=== PATIENT | male | born 1940 | race Caucasian/White ===

== ENCOUNTER → 2016-05-09 | Day surgery (SDC) | payer OTHER ==
[~2016-05-09] VITALS: Ht 172.7 cm; Wt 81.4 kg
[~2016-05-09] MED LIST: AMARYL2 MG PO; AMARYL4 MG PO; ANTIVERT25 MG PO; BACTRIM,SEPT1 TABLET PO; CARAFATE1 GM PO; CARAFATE100 MG/ML PO; GLIMEPIRIDE4 MG PO; GLIPIZIDE-METF1 EAC2 PO; GLUCOPHAGE1000 MG PO; IMODIUM MS REL1 EACH PO; JENTADUETO 2.51 EAC1 PO; JENTADUETO 2.51 EAC2 PO; LAMICTAL XR100 MG PO; LANSOPRAZOLE30 MG PO; LEVOXYL50 MCG PO; LINZESS290 MCG PO; LISINOPRIL10 MG PO; LORTAB 5-325 M1 EACH PO; MEGACE20 MG PO; MEGACE40 MG PO; MEGESTROL ACETA40 MG PO; MOBIC7.5 MG PO; OMEPRAZOLE20 M2 PO; OXYCODONE-APAP1 EAC6 PO; PANTOPRAZOLE SO40 MG PO; PEPCID20 MG PO; PERCOCET 5/31 TABLET PO; PERCOCET 7.51 TABLET PO; PREDNISONE20 MG PO; PRILOSEC20 MG PO; PRINIVIL10 MG PO; PROTONIX40 MG PO; SUCRALFATE1 GM/10 ML PO; SYNTHROID50 MCG PO; TRADJENTA5 MG PO
[2016-05-09 14:09] LABS: HEMATOCRIT 28.8 % (38.0-50.0); MCHC 30.9 G/DL (30.0-36.0); MCV 68.1 FL (86-99); MEAN PLAT.VOLUME 10.4 uM^3 (9.0-12.4); PLATELET COUNT 353 K/uL (156-360); RBC DIS.WIDTH-CV 18.6 % (11.8-14.6); RBC DIS.WIDTH-SD 45.2 % (39-53); RED BLOOD COUNT 4.23 M/uL (4.00-5.50); WHITE BLOOD COUNT 9.7 K/uL (4.1-10.2)
[2016-05-09 14:21] LABS: CHLORIDE 107 mEq/L (99-109); POTASSIUM 4.5 mEq/L (3.7-5.4); SODIUM 140 mEq/L (136-147)
[2016-05-09 14:23] LABS: GLUCOSE 145 mg/dL (70-99)
[2016-05-09 14:25] LABS: ANION GAP 11 MEQ/L (2-14)
[2016-05-09 14:27] LABS: GFR ESTIMATE (CALCULATED) 48 mL/min/
[2016-05-09 14:28] LABS: UREA NITROGEN (BUN) 28 mg/dL (9-23)
[2016-05-09 15:11] VITALS: BP 118/60
[2016-05-09 17:15] LABS: POINT-OF-CARE METER ID UU13113675
== END | disposition home or self-care (01) ==
LOC: EME → EDBD 12:58 → EME 12:58 → SDC 15:45
PROVIDERS: Emergency Medicine; Specialist
PROC: 0DC38ZZ Extirpation of Matter from Lower Esophagus, Via Natural or Artificial Opening Endoscopic (ICD-10-PCS; principal; 2016-05-09)
DX: T18.128A Food in esophagus causing other injury, initial encounter (principal); Y92.9 Unspecified place or not applicable; K22.2 Esophageal obstruction; K20.9 Esophagitis, unspecified; I10 Essential (primary) hypertension; E03.9 Hypothyroidism, unspecified; E11.9 Type 2 diabetes mellitus without complications; G40.909 Epilepsy, unspecified, not intractable, without status epilepticus; Z95.1 Presence of aortocoronary bypass graft
CPT/HCPCS: 80048; 82948; 85027; 93005; 99281; 99285; J0330; J3010; J7030

== ENCOUNTER 2016-05-23 16:05 | Emergency (ER) | payer OTHER ==
[~2016-05-23] VITALS: Ht 172.7 cm; Wt 84.2 kg
[2016-05-23 17:50] LABS: HEMATOCRIT 30.8 % (38.0-50.0); MCHC 30.2 G/DL (30.0-36.0); MCV 69.7 FL (86-99); RBC DIS.WIDTH-CV 18.3 % (11.8-14.6); RBC DIS.WIDTH-SD 45.3 % (39-53); RED BLOOD COUNT 4.42 M/uL (4.00-5.50); WHITE BLOOD COUNT 11.6 K/uL (4.1-10.2)
[2016-05-23 18:12] LABS: TROP-I INTERPRETATION NEGATIVE; TROPONIN-I 0.01 ng/mL (0.0-0.30)
[2016-05-23 18:19] LABS: CHLORIDE 107 mEq/L (99-109); POTASSIUM 5.1 mEq/L (3.7-5.4); SODIUM 140 mEq/L (136-147)
[2016-05-23 18:21] LABS: GLUCOSE 90 mg/dL (70-99)
[2016-05-23 18:22] LABS: ANION GAP 11 MEQ/L (2-14)
[2016-05-23 18:25] LABS: GFR ESTIMATE (CALCULATED) 45 mL/min/
[2016-05-23 18:26] LABS: UREA NITROGEN (BUN) 25 mg/dL (9-23)
[2016-05-23 18:37] LABS: MEAN PLAT.VOLUME 11.1 uM^3 (9.0-12.4)
[2016-05-23 18:38] LABS: PLATELET COUNT 217 K/uL (156-360)
[2016-05-23] MEDS ORDERED: ZANTAC150 MG PO (19:27)
[2016-05-23] MEDS ORDERED: MAALOX ADVANCE355 ML PO (19:27)
[2016-05-23 19:57] VITALS: BP 102/60
== END 2016-05-23 20:19 | disposition home or self-care (01) ==
LOC: EXP 16:05 → EME 16:05 → EXP 20:19
PROVIDERS: Physician Assistant
DX: K21.9 Gastro-esophageal reflux disease without esophagitis (principal)
CPT/HCPCS: 80048; 84484; 85027; 93005; 99281; 99284

== ENCOUNTER 2016-05-31 08:48 | Emergency (ER) | payer OTHER ==
[~2016-05-31] VITALS: Ht 172.7 cm; Wt 85.9 kg
[~2016-05-31 08:48] MED LIST changes: +MAALOX ADVANCE355 ML PO; +ZANTAC150 MG PO
[2016-05-31 09:38] LABS: HEMATOCRIT 30.3 % (38.0-50.0); MCH 21.3 PG (29.0-34.0); MCV 70.8 FL (86-99); RBC DIS.WIDTH-CV 17.9 % (11.8-14.6); RBC DIS.WIDTH-SD 45.2 % (39-53); RED BLOOD COUNT 4.28 M/uL (4.00-5.50); WHITE BLOOD COUNT 11.8 K/uL (4.1-10.2)
[2016-05-31 09:40] LABS: CHLORIDE 110 mEq/L (99-109); POTASSIUM 4.5 mEq/L (3.7-5.4); SODIUM 140 mEq/L (136-147)
[2016-05-31 09:43] LABS: GLUCOSE 69 mg/dL (70-99)
[2016-05-31 09:44] LABS: ANION GAP 11 MEQ/L (2-14)
[2016-05-31 09:45] LABS: TOTAL BILIRUBIN 0.2 mg/dL (0.0-1.0)
[2016-05-31 09:46] LABS: ALKALINE PHOSPHATASE 90 IU/L (3-129)
[2016-05-31 09:47] LABS: GFR ESTIMATE (CALCULATED) 57 mL/min/
[2016-05-31 09:48] LABS: DIRECT BILIRUBIN 0.1 mg/dL (0.0-0.3); UREA NITROGEN (BUN) 29 mg/dL (9-23)
[2016-05-31 09:50] LABS: LIPASE 69 U/L (1.0-51.0)
[2016-05-31 09:51] LABS: TROP-I INTERPRETATION NEGATIVE; TROPONIN-I 0.01 ng/mL (0.0-0.30)
[2016-05-31 11:02] LABS: MEAN PLAT.VOLUME 10.6 uM^3 (9.0-12.4)
[2016-05-31 11:21] LABS: PLATELET COUNT 293 K/uL (156-360)
[2016-05-31] MEDS ORDERED: ZANTAC150 MG PO (11:33)
[2016-05-31 12:15] VITALS: BP 134/51
[2016-05-31 12:23] LABS: POINT-OF-CARE METER ID UU13113702; POINT-OF-CARE USER ID AHSDISBJH
== END 2016-05-31 12:18 | disposition home or self-care (01) ==
LOC: EME → EDBD 08:48 → EME 12:18
PROVIDERS: Emergency Medicine
DX: K21.0 Gastro-esophageal reflux disease with esophagitis (principal); D72.829 Elevated white blood cell count, unspecified; D64.9 Anemia, unspecified; E87.8 Other disorders of electrolyte and fluid balance, not elsewhere classified; E11.9 Type 2 diabetes mellitus without complications; Z95.1 Presence of aortocoronary bypass graft
CPT/HCPCS: 71020; 80048; 80076; 82948; 83690; 84484; 85027; 99281; 99285

== ENCOUNTER → 2016-07-08 | Outpatient (CLI) | payer OTHER ==
[~2016-07-08] VITALS: Ht 172.7 cm; Wt 85.7 kg
[~2016-07-08] MED LIST changes: +KENALOG,ARISTOC15 G2 TP
== END | disposition home or self-care (01) ==
LOC: AMB 14:30
DX: R07.0 Pain in throat (principal); K44.9 Diaphragmatic hernia without obstruction or gangrene; Z53.09 Procedure and treatment not carried out because of other contraindication

== ENCOUNTER → 2016-07-22 | Outpatient (CLI) | payer OTHER ==
[~2016-07-22] VITALS: Ht 172.7 cm; Wt 83.9 kg
[2016-07-22 14:45] LABS: POINT-OF-CARE METER ID UU13113694
[2016-07-22 16:05] LABS: POINT-OF-CARE METER ID UU13113819
== END | disposition home or self-care (01) ==
LOC: AMB 14:00
PROVIDERS: Internal Medicine Gastroenterology
DX: K22.2 Esophageal obstruction (principal); K26.9 Duodenal ulcer, unspecified as acute or chronic, without hemorrhage or perforation; K29.50 Unspecified chronic gastritis without bleeding; I25.10 Atherosclerotic heart disease of native coronary artery without angina pectoris; E11.9 Type 2 diabetes mellitus without complications; I10 Essential (primary) hypertension; R94.31 Abnormal electrocardiogram [ECG] [EKG]; Z85.46 Personal history of malignant neoplasm of prostate; Z95.1 Presence of aortocoronary bypass graft; Z87.891 Personal history of nicotine dependence
CPT/HCPCS: 82948; 88305; 88342 TC

== ENCOUNTER 2016-09-16 14:10 | Emergency (ER) | payer OTHER ==
[~2016-09-16] VITALS: Ht 172.7 cm; Wt 85.2 kg
[2016-09-16 16:56] VITALS: BP 136/55
== END 2016-09-16 16:58 | disposition home or self-care (01) ==
LOC: EME 14:10
DX: T18.108A Unspecified foreign body in esophagus causing other injury, initial encounter (principal); E11.9 Type 2 diabetes mellitus without complications; Z79.84 Long term (current) use of oral hypoglycemic drugs; Z95.1 Presence of aortocoronary bypass graft; Z87.891 Personal history of nicotine dependence
CPT/HCPCS: 99281; 99284

== ENCOUNTER 2016-11-19 09:00 | Emergency (ER) | payer OTHER ==
[~2016-11-19] VITALS: Ht 172.7 cm; Wt 86.3 kg
[2016-11-19] MEDS ORDERED: ULTRAM50 MG PO (10:07)
[2016-11-19 10:31] VITALS: BP 186/70
== END 2016-11-19 10:48 | disposition home or self-care (01) ==
LOC: EME 09:00
DX: S39.012A Strain of muscle, fascia and tendon of lower back, initial encounter (principal); E11.9 Type 2 diabetes mellitus without complications; Z79.84 Long term (current) use of oral hypoglycemic drugs; Z87.891 Personal history of nicotine dependence
CPT/HCPCS: 99281; 99284

== ENCOUNTER 2016-12-29 18:41 | Day surgery (SDC) | payer OTHER ==
[~2016-12-29] VITALS: Ht 172.7 cm; Wt 79.6 kg
[~2016-12-29 18:41] MED LIST changes: +ULTRAM50 MG PO
[2016-12-29 19:57] LABS: HEMATOCRIT 32.2 % (38.0-50.0); MCH 24.2 PG (29.0-34.0); MCHC 31.7 G/DL (30.0-36.0); MCV 76.5 FL (86-99); MEAN PLAT.VOLUME 11.4 uM^3 (9.0-12.4); PLATELET COUNT 247 K/uL (156-360); RBC DIS.WIDTH-CV 15.4 % (11.8-14.6); RBC DIS.WIDTH-SD 42.1 % (39-53); RED BLOOD COUNT 4.21 M/uL (4.00-5.50); WHITE BLOOD COUNT 10.1 K/uL (4.1-10.2)
[2016-12-29 20:10] LABS: CHLORIDE 106 mEq/L (99-109); POTASSIUM 4.5 mEq/L (3.7-5.4); SODIUM 139 mEq/L (136-147)
[2016-12-29 20:12] LABS: GLUCOSE 163 mg/dL (70-99)
[2016-12-29 20:13] LABS: ANION GAP 14 MEQ/L (2-14)
[2016-12-29 20:14] LABS: TOTAL BILIRUBIN 0.3 mg/dL (0.0-1.0)
[2016-12-29 20:15] LABS: ALKALINE PHOSPHATASE 92 IU/L (3-129)
[2016-12-29 20:16] LABS: GFR ESTIMATE (CALCULATED) 39 mL/min/
[2016-12-29 20:17] LABS: UREA NITROGEN (BUN) 26 mg/dL (9-23)
[2016-12-29 21:12] LABS: ADD MIUA? NO; BILIRUBIN NEGATIVE; BLOOD NEGATIVE; COLOR YELLOW ((YELLOW)); GLUCOSE (STRIP) NEGATIVE; KETONES NEGATIVE; LEUKOCYTES NEGATIVE; NITRITE NEGATIVE; PROTEIN (STRIP) NEGATIVE; SPECIFIC GRAVITY 1.018 (1.000-1.030); UCUL ADDED? NO; UROBILINOGEN 0.2 MG/DL (0.2-1.0)
[2016-12-29] MEDS ORDERED: TRAMADOL HCL50 MG PO (21:35)
[2016-12-30 00:38] VITALS: BP 168/70
[2016-12-30 03:47] VITALS: BP 153/67
[2016-12-30 06:04] LABS: POINT-OF-CARE METER ID UU14208750
[2016-12-30 07:03] LABS: HEMATOCRIT 29.7 % (38.0-50.0); MCH 24.4 PG (29.0-34.0); MCHC 31.6 G/DL (30.0-36.0); MCV 77.1 FL (86-99); MEAN PLAT.VOLUME 10.9 uM^3 (9.0-12.4); PLATELET COUNT 220 K/uL (156-360); RBC DIS.WIDTH-CV 15.8 % (11.8-14.6); RBC DIS.WIDTH-SD 43.7 % (39-53); RED BLOOD COUNT 3.85 M/uL (4.00-5.50); WHITE BLOOD COUNT 10.1 K/uL (4.1-10.2)
[2016-12-30 07:12] VITALS: BP 118/54
[2016-12-30 07:34] LABS: ANION GAP 11 MEQ/L (2-14); CHLORIDE 109 MEQ/L (99-109); GFR ESTIMATE (CALCULATED) 57 mL/min/; SAMPLE HEMOLYSIS CHECK 0; SAMPLE ICTERIC CHECK 0; SAMPLE LIPEMIA CHECK 0; SODIUM 141 MEQ/L (136-147); UREA NITROGEN (BUN) 21 mg/dL (9-23)
[2016-12-30 07:38] LABS: GLUCOSE 108 mg/dL (70-99)
[2016-12-30] MEDS ORDERED: PROMETHAZINE HC25 M1 PO (08:28)
[2016-12-30] MEDS ORDERED: COLACE100 MG PO (08:28)
== END 2016-12-30 10:51 | disposition home or self-care (01) ==
LOC: EME 18:41 → SDC 22:11 → 2SOUTH 22:29 → 2EASTP 22:29 → ENRESERV 23:01 → 2EASTP 23:53 → ENRESERV 23:55 → 2EASTP 12-30 10:51
PROVIDERS: Hospitalist; Specialist
PROC: 0DC38ZZ Extirpation of Matter from Lower Esophagus, Via Natural or Artificial Opening Endoscopic (ICD-10-PCS; principal; 2016-12-29)
DX: T18.128A Food in esophagus causing other injury, initial encounter (principal); K29.70 Gastritis, unspecified, without bleeding; K21.9 Gastro-esophageal reflux disease without esophagitis; I25.10 Atherosclerotic heart disease of native coronary artery without angina pectoris; Z95.5 Presence of coronary angioplasty implant and graft; Z85.46 Personal history of malignant neoplasm of prostate; I10 Essential (primary) hypertension; E11.9 Type 2 diabetes mellitus without complications; G40.909 Epilepsy, unspecified, not intractable, without status epilepticus; Z87.19 Personal history of other diseases of the digestive system; E03.9 Hypothyroidism, unspecified; Z87.891 Personal history of nicotine dependence
CPT/HCPCS: 71010; 80048; 80053; 81003; 82948; 85027; 93005; 99281; 99285; G0378; J0330; J1644; J1815; J2405; J3010; J7030

== ENCOUNTER → 2017-03-06 | Outpatient (CLI) | payer OTHER ==
[~2017-03-06] VITALS: Ht 172.7 cm; Wt 85.0 kg
[~2017-03-06] MED LIST changes: +COLACE100 MG PO; +OMEPRAZOLE40 M1 PO; +PROMETHAZINE HC25 M1 PO; +TRAMADOL HCL50 MG PO
== END | disposition home or self-care (01) ==
LOC: AMB 13:30
PROC: 0DJ08ZZ Inspection of Upper Intestinal Tract, Via Natural or Artificial Opening Endoscopic (ICD-10-PCS; principal; 2017-03-06)
DX: R13.10 Dysphagia, unspecified (principal); Z53.09 Procedure and treatment not carried out because of other contraindication; R41.0 Disorientation, unspecified

== ENCOUNTER 2017-04-06 15:43 | Emergency (ER) | payer OTHER ==
[~2017-04-06] VITALS: Ht 172.7 cm; Wt 84.1 kg
[2017-04-06 17:10] LABS: CHLORIDE 107 mEq/L (99-109); POTASSIUM 4.3 mEq/L (3.7-5.4); SODIUM 139 mEq/L (136-147)
[2017-04-06 17:11] LABS: BASOPHIL (%) 1.2 % (0-1); BASOPHIL COUNT 0.1 K/uL (0-0.1); EOSINOPHIL (%) 4.1 % (0-5); EOSINOPHIL COUNT 0.3 K/uL (0-0.3); HEMOGLOBIN 8.6 G/DL (12.5-16.6); IMMATURE GRANULOCYTE (%) 0.2 % (0.0-0.7); LYMPHOCYTE (%) 30.5 % (15-42); LYMPHOCYTE COUNT 2.5 K/uL (1.0-2.8); MCH 22.3 PG (29.0-34.0); MCHC 30.7 G/DL (30.0-36.0); MCV 72.7 FL (86-99); MONOCYTE (%) 7.7 % (3-12); MONOCYTE COUNT 0.6 K/uL (0-0.8); NEUTROPHIL (%) 56.3 % (45-76); NEUTROPHIL COUNT 4.7 K/uL (1.8-6.4); PLATELET COUNT 334 K/uL (156-360); RBC DIS.WIDTH-CV 16.4 % (11.8-14.6); RBC DIS.WIDTH-SD 42.2 % (39-53); RED BLOOD COUNT 3.85 M/uL (4.00-5.50); WHITE BLOOD COUNT 8.3 K/uL (4.1-10.2)
[2017-04-06 17:13] LABS: GLUCOSE 156 mg/dL (70-99); TOTAL PROTEIN 6.6 g/dL (6.4-8.3)
[2017-04-06 17:14] LABS: TOTAL BILIRUBIN 0.3 mg/dL (0.0-1.0)
[2017-04-06 17:16] LABS: ALKALINE PHOSPHATASE 82 IU/L (3-129); CREATININE 1.3 mg/dL (0.6-1.3); GFR ESTIMATE (CALCULATED) 57 mL/min/ (58.99-99999)
[2017-04-06 17:17] LABS: UREA NITROGEN (BUN) 18 mg/dL (9-23)
[2017-04-06 17:18] LABS: AST (GOT) 16 IU/L (2-34)
[2017-04-06 17:19] LABS: ALT (GPT) 10 IU/L (3-49)
[2017-04-06 18:41] VITALS: BP 180/85
== END 2017-04-06 18:49 | disposition home or self-care (01) ==
LOC: EME 15:43
PROVIDERS: Emergency Medicine
DX: R13.10 Dysphagia, unspecified (principal); D64.9 Anemia, unspecified; E11.9 Type 2 diabetes mellitus without complications; K21.9 Gastro-esophageal reflux disease without esophagitis; E03.9 Hypothyroidism, unspecified; Z87.891 Personal history of nicotine dependence; Z95.1 Presence of aortocoronary bypass graft; Z79.84 Long term (current) use of oral hypoglycemic drugs
CPT/HCPCS: 80053; 82948; 85025; 99281; 99285; J7030

== ENCOUNTER 2017-04-26 07:36 | Emergency (ER) | payer OTHER ==
[~2017-04-26] VITALS: Ht 172.7 cm; Wt 81.9 kg
[2017-04-26] MEDS ORDERED: ULTRAM50 MG PO (09:34)
[2017-04-26 10:59] VITALS: BP 112/84
== END 2017-04-26 12:27 | disposition home or self-care (01) ==
LOC: EME 07:36
DX: S93.401A Sprain of unspecified ligament of right ankle, initial encounter (principal); W01.0XXA Fall on same level from slipping, tripping and stumbling without subsequent striking against object, initial encounter
CPT/HCPCS: 73610; 99281; 99283

== ENCOUNTER → 2017-06-29 | Day surgery (SDC) | payer OTHER ==
[~2017-06-29] VITALS: Ht 172.7 cm; Wt 81.6 kg
[~2017-06-29] MED LIST changes: +BENTYL20 MG PO
[2017-06-29 14:26] LABS: HEMATOCRIT 26.1 % (38.0-50.0); HEMOGLOBIN 8.1 G/DL (12.5-16.6); MCH 21.7 PG (29.0-34.0); PLATELET COUNT 358 K/uL (156-360); RBC DIS.WIDTH-CV 16.7 % (11.8-14.6); RED BLOOD COUNT 3.73 M/uL (4.00-5.50); WHITE BLOOD COUNT 9.7 K/uL (4.1-10.2)
[2017-06-29 14:33] LABS: ALBUMIN 4.1 g/dL (3.2-4.8)
[2017-06-29 14:34] LABS: CHLORIDE 107 mEq/L (99-109); POTASSIUM 4.5 mEq/L (3.7-5.4); SODIUM 139 mEq/L (136-147)
[2017-06-29 14:36] LABS: GLUCOSE 182 mg/dL (70-99); TOTAL PROTEIN 6.7 g/dL (6.4-8.3)
[2017-06-29 14:38] LABS: TOTAL BILIRUBIN 0.1 mg/dL (0.0-1.0)
[2017-06-29 14:39] LABS: ALKALINE PHOSPHATASE 95 IU/L (3-129)
[2017-06-29 14:40] LABS: CREATININE 1.6 mg/dL (0.6-1.3); GFR ESTIMATE (CALCULATED) 45 mL/min/ (58.99-99999)
[2017-06-29 14:41] LABS: AST (GOT) 13 IU/L (2-34); UREA NITROGEN (BUN) 28 mg/dL (9-23)
[2017-06-29 14:43] LABS: ALT (GPT) 11 IU/L (3-49); LIPASE 89 U/L (1.0-51.0)
[2017-06-29 14:54] VITALS: BP 121/49
== END | disposition home or self-care (01) ==
LOC: EME 12:33 → AMB 16:01
PROVIDERS: Emergency Medicine
PROC: 0DC38ZZ Extirpation of Matter from Lower Esophagus, Via Natural or Artificial Opening Endoscopic (ICD-10-PCS; principal; 2017-06-29)
DX: K22.2 Esophageal obstruction (principal); T18.128A Food in esophagus causing other injury, initial encounter; K44.9 Diaphragmatic hernia without obstruction or gangrene; K22.10 Ulcer of esophagus without bleeding; K08.109 Complete loss of teeth, unspecified cause, unspecified class; I51.9 Heart disease, unspecified; E11.22 Type 2 diabetes mellitus with diabetic chronic kidney disease; N18.9 Chronic kidney disease, unspecified; K21.9 Gastro-esophageal reflux disease without esophagitis; E03.9 Hypothyroidism, unspecified; D64.9 Anemia, unspecified; Z79.84 Long term (current) use of oral hypoglycemic drugs; Z85.46 Personal history of malignant neoplasm of prostate; Z85.038 Personal history of other malignant neoplasm of large intestine; Z95.1 Presence of aortocoronary bypass graft; Z87.891 Personal history of nicotine dependence
CPT/HCPCS: 80053; 82948; 83690; 85027; 99281; 99285; C9113; J2405; J7030

== ENCOUNTER 2017-07-01 09:10 | Emergency (ER) | payer OTHER ==
[~2017-07-01] VITALS: Ht 172.7 cm; Wt 80.9 kg
[~2017-07-01 09:10] MED LIST changes: -BENTYL20 MG PO
[2017-07-01 10:03] LABS: CHLORIDE 108 mEq/L (99-109); POTASSIUM 4.5 mEq/L (3.7-5.4); SODIUM 138 mEq/L (136-147)
[2017-07-01 10:05] LABS: GLUCOSE 250 mg/dL (70-99); HEMATOCRIT 25.7 % (38.0-50.0); HEMOGLOBIN 7.8 G/DL (12.5-16.6); MCH 21.4 PG (29.0-34.0); MCHC 30.4 G/DL (30.0-36.0); MCV 70.4 FL (86-99); RBC DIS.WIDTH-CV 16.8 % (11.8-14.6); RBC DIS.WIDTH-SD 42.8 % (39-53); RED BLOOD COUNT 3.65 M/uL (4.00-5.50); TOTAL PROTEIN 6.1 g/dL (6.4-8.3); WHITE BLOOD COUNT 8.7 K/uL (4.1-10.2)
[2017-07-01 10:06] LABS: PLATELET COUNT 238 K/uL (156-360)
[2017-07-01 10:08] LABS: ALKALINE PHOSPHATASE 93 IU/L (3-129)
[2017-07-01 10:09] LABS: CREATININE 1.5 mg/dL (0.6-1.3); GFR ESTIMATE (CALCULATED) 48 mL/min/ (58.99-99999)
[2017-07-01 10:10] LABS: AST (GOT) 16 IU/L (2-34); UREA NITROGEN (BUN) 19 mg/dL (9-23)
[2017-07-01 10:12] LABS: ALT (GPT) 11 IU/L (3-49)
[2017-07-01 10:13] LABS: TOTAL BILIRUBIN 0.2 mg/dL (0.0-1.0)
[2017-07-01] MEDS ORDERED: BENTYL20 MG PO (11:54)
[2017-07-01 12:46] VITALS: BP 124/51
== END 2017-07-01 12:46 | disposition home or self-care (01) ==
LOC: EME 09:10
PROVIDERS: Nurse Practitioner Family
DX: M79.1 Myalgia (principal); E11.9 Type 2 diabetes mellitus without complications; K21.9 Gastro-esophageal reflux disease without esophagitis; D64.9 Anemia, unspecified; Z95.1 Presence of aortocoronary bypass graft; Z87.891 Personal history of nicotine dependence
CPT/HCPCS: 71046; 80053; 85027; 99281; 99284

== ENCOUNTER 2017-07-05 15:51 | Inpatient (IN) | payer OTHER ==
[~2017-07-05] VITALS: Ht 172.7 cm; Wt 87.7 kg
[~2017-07-05 15:51] MED LIST changes: +BENTYL20 MG PO
[2017-07-05 22:32] VITALS: BP 147/65
[2017-07-06] VITALS (11 sets, daily range): BP systolic 125–162; BP diastolic 56–70
[2017-07-06 05:54] LABS: HEMATOCRIT 24.2 % (38.0-50.0); HEMOGLOBIN 7.3 G/DL (12.5-16.6); MCH 21.2 PG (29.0-34.0); MCHC 30.2 G/DL (30.0-36.0); MCV 70.3 FL (86-99); RBC DIS.WIDTH-CV 16.9 % (11.8-14.6); RBC DIS.WIDTH-SD 43.2 % (39-53); RED BLOOD COUNT 3.44 M/uL (4.00-5.50); WHITE BLOOD COUNT 9.9 K/uL (4.1-10.2)
[2017-07-06 05:56] LABS: CHLORIDE 110 MEQ/L (99-109); CREATININE 1.4 MG/DL (0.6-1.3); GFR ESTIMATE (CALCULATED) 52 mL/min/ (58.99-99999); GLUCOSE 69 mg/dL (70-99); PLATELET COUNT 367 K/uL (156-360); SODIUM 144 MEQ/L (136-147); UREA NITROGEN (BUN) 19 mg/dL (9-23)
[2017-07-07 01:13] VITALS: BP 137/63
[2017-07-07 06:48] LABS: ALBUMIN 3.4 G/DL (3.2-4.8); BASOPHIL (%) 1.9 % (0-1); BASOPHIL COUNT 0.1 K/uL (0-0.1); CHLORIDE 112 MEQ/L (99-109); CREATININE 1.3 MG/DL (0.6-1.3); EOSINOPHIL COUNT 0.4 K/uL (0-0.3); GFR ESTIMATE (CALCULATED) 57 mL/min/ (58.99-99999); HEMATOCRIT 31.4 % (38.0-50.0); IMMATURE GRANULOCYTE (%) 0.4 % (0.0-0.7); LYMPHOCYTE (%) 31.2 % (15-42); LYMPHOCYTE COUNT 2.1 K/uL (1.0-2.8); MCH 23.1 PG (29.0-34.0); MCHC 31.2 G/DL (30.0-36.0); MCV 74.1 FL (86-99); MONOCYTE (%) 8.2 % (3-12); MONOCYTE COUNT 0.6 K/uL (0-0.8); NEUTROPHIL (%) 52.3 % (45-76); NEUTROPHIL COUNT 3.6 K/uL (1.8-6.4); PLATELET COUNT 343 K/uL (156-360); POTASSIUM 3.9 MEQ/L (3.7-5.4); RBC DIS.WIDTH-SD 51.1 % (39-53); SODIUM 143 MEQ/L (136-147); UREA NITROGEN (BUN) 11 mg/dL (9-23); WHITE BLOOD COUNT 6.9 K/uL (4.1-10.2)
[2017-07-07 06:49] LABS: GLUCOSE 104 mg/dL (70-99); HEMOGLOBIN 9.8 G/DL (12.5-16.6); RED BLOOD COUNT 4.24 M/uL (4.00-5.50)
[2017-07-07 16:14] VITALS: BP 169/70
[2017-07-07 19:43] VITALS: BP 146/64
[2017-07-07 23:53] VITALS: BP 161/76
[2017-07-08 03:54] VITALS: BP 136/60
[2017-07-08 07:55] LABS: HEMATOCRIT 32.1 % (38.0-50.0); HEMOGLOBIN 10.2 G/DL (12.5-16.6); MCH 23.6 PG (29.0-34.0); MCHC 31.8 G/DL (30.0-36.0); MCV 74.3 FL (86-99); NRBC (%) 0.3 /100 WBC (0-0); PLATELET COUNT 315 K/uL (156-360); RBC DIS.WIDTH-CV 19.4 % (11.8-14.6); RBC DIS.WIDTH-SD 51.1 % (39-53); RED BLOOD COUNT 4.32 M/uL (4.00-5.50); WHITE BLOOD COUNT 7.6 K/uL (4.1-10.2)
[2017-07-08 08:14] LABS: ALBUMIN 3.5 G/DL (3.2-4.8); ALKALINE PHOSPHATASE 84 IU/L (3-129); ALT (GPT) 8 IU/L (3-49); AST (GOT) 16 IU/L (2-34); CHLORIDE 110 MEQ/L (99-109); CREATININE 1.2 MG/DL (0.6-1.3); GFR ESTIMATE (CALCULATED) > 59 mL/min/ (58.99-99999); GLUCOSE 98 mg/dL (70-99); POTASSIUM 3.8 MEQ/L (3.7-5.4); SODIUM 142 MEQ/L (136-147); TOTAL BILIRUBIN 0.5 MG/DL (0.0-1.0); TOTAL PROTEIN 5.5 G/DL (6.4-8.3); UREA NITROGEN (BUN) 9 mg/dL (9-23)
[2017-07-08 08:36] VITALS: BP 141/72
[2017-07-08 12:09] VITALS: BP 159/65
[2017-07-08] MEDS ORDERED: CARAFATE100 MG/ML PO (13:39)
== END 2017-07-08 15:02 | disposition home health service (06) | DRG 392 ==
LOC: AMB 15:51 → 3EAST 17:54 → 2SOUTH 17:54 → ENRESERV 18:01 → 3EAST 21:13
PROVIDERS: Hospitalist; Internal Medicine; Internal Medicine Gastroenterology
PROC: 0DC58ZZ Extirpation of Matter from Esophagus, Via Natural or Artificial Opening Endoscopic (ICD-10-PCS; 2017-07-05)
PROC: 30233N1 Transfusion of Nonautologous Red Blood Cells into Peripheral Vein, Percutaneous Approach (ICD-10-PCS; principal; 2017-07-06)
PROC: 0DBN8ZZ Excision of Sigmoid Colon, Via Natural or Artificial Opening Endoscopic (ICD-10-PCS; 2017-07-07)
DX: K22.2 Esophageal obstruction (principal); K92.2 Gastrointestinal hemorrhage, unspecified; T18.128A Food in esophagus causing other injury, initial encounter; K21.9 Gastro-esophageal reflux disease without esophagitis; E11.22 Type 2 diabetes mellitus with diabetic chronic kidney disease; D50.0 Iron deficiency anemia secondary to blood loss (chronic); I12.9 Hypertensive chronic kidney disease with stage 1 through stage 4 chronic kidney disease, or unspecified chronic kidney disease; N18.2 Chronic kidney disease, stage 2 (mild); K64.8 Other hemorrhoids; E03.9 Hypothyroidism, unspecified; I25.10 Atherosclerotic heart disease of native coronary artery without angina pectoris; K44.9 Diaphragmatic hernia without obstruction or gangrene; D12.5 Benign neoplasm of sigmoid colon; Z95.1 Presence of aortocoronary bypass graft; Z92.3 Personal history of irradiation; Z85.46 Personal history of malignant neoplasm of prostate
CPT/HCPCS: 80048; 80053; 80069; 82948; 85025; 85027; 86850; 86900; 86901; 86920; 88305; C9113; J0330; J1644; J1815; J2250; J7030; P9016